=== PATIENT | female | born 1955 | race Caucasian/White ===

== ENCOUNTER 2019-12-24 21:25 | Emergency (ER) | payer OTHER ==
[~2019-12-24] VITALS: Ht 162.6 cm; Wt 69.4 kg
--- NOTE | ~2019-12-24 | EKG ---
[facility] [address] ELECTROCARDIOGRAM REPORT Name: KRISTEN ALVARADO Room #: REG [facility].#: [id number] Admission: 12/24/19 Attend Phys: Discharge: Date of : 53 Report #: [id number] THIS REPORT FOR: cc: Odell York MD, Alexander C. MD Epiphany, Epiphany MD ~ THIS REPORT FOR: //name// [facility] ED Test Date: 2019-12-24 Test Time: 21:37:51 Pat Name: KRISTEN ALVARADO Department: Room: Gender: F Associate Merchant: ELEANOR : 1955 Requested By: Renaldo Ma Order Number: [id number] MD: Measurements Intervals [place] Rate: 90 P: 23 AK: 159 QRS: 11 QRSD: 89 T: 9 QT: 361 QTc: 442 Interpretive Statements Sinus rhythm Borderline T wave abnormalities Baseline wander in lead(s) V6 No previous ECG available for comparison [email or web address] By: [id number] Epiphany Epiphany, /EPI
[~2019-12-24 21:25] MED LIST: ADVIL100 M2 PO; JINTELI 1 MG-51 EACH PO; NORCO 10-325 T1 EACH PO; NORCO 5-325 TA1 EACH PO; PERCOCET 5-3251 EACH PO; ZESTRIL2.5 MG PO
[2019-12-24] MEDS ORDERED: PROAIR HFA8.5 GM INH (22:29)
[2019-12-24 23:03] VITALS: BP 121/65
== END 2019-12-24 23:13 | disposition home or self-care (01) ==
LOC: ER 21:25
DX: J45.909 Unspecified asthma, uncomplicated (principal); I10 Essential (primary) hypertension; Z88.8 Allergy status to other drugs, medicaments and biological substances